=== PATIENT | female | born 1975 | race African-American/Black ===

== ENCOUNTER 2017-10-12 11:06 | Emergency (ER) | payer MEDICAID ==
[~2017-10-12] VITALS: Ht 167.6 cm; Wt 90.3 kg
[2017-10-12 11:26] VITALS: BP 142/92
--- NOTE | 2017-10-12 11:51 | NUR ---
42F BIB SELF WITH C/O ABNORMAL HEAVY VAGINAL BLEEDING X 15 DAYS, WORSENING THE PAST TWO DAYS. PT ALSO REPORTS OF INTERMITTENT DIZZINESS AND FATIGUE X 2 DAYS. PT STATES HAS HX OF ABNORMAL HEAVY VAGINAL BLEEDING DURING PERIOD. PT ALSO REPORTS OF 7/10 THROAT PAIN AND GENERALIZED PAIN. PT REPORTS OF VAGINAL BLEEDING 1 PAD PER PERIOD. PT DENIES ANY ABD PAIN OR N/V/D. PT IS AOX4 WITH STEADY GAIT. RR ARE EVEN AND UNLABORED. SKIN WARM/PINK/DRY. AWAITING FOR ER MD CORMIER. NO ACUTE DISTRESS AT THIS TIME. VSS. ALL NEEDS MET AT THIS TIME. WILL CONTINUE TO MONITOR.
[2017-10-12] MEDS ORDERED: ONDANSETRON 4 MG/2 ML VIAL IVP ONE (12:35)
[2017-10-12] MEDS ORDERED: KETOROLAC 30 MG/ML VIAL IVP ONE (12:35)
[2017-10-12] MEDS ORDERED: DEXAMETHASONE 10 MG/ML VIAL IVP ONE (12:35)
[2017-10-12] MEDS ORDERED: NACL 0.9% 1,000 ML IV SCH (12:35)
[2017-10-12] MEDS ORDERED: cefTRIAXone 1,000 MG VIAL ONE (13:00)
--- NOTE | 2017-10-12 13:04 | NUR ---
PT RESTING WITH EYES CLOSED LYING SUPINE. NO COMPLAITNS. RR ARE EVEN AND UNLABORED. WILL CONTINUE TO MONITOR.
[2017-10-12 13:25] LABS: ANION GAP 11.4 (8-16); CARBON DIOXIDE 25.4 mmol/L (21-32); CREATININE 0.7 mg/dL (0.6-1.3); POTASSIUM 3.8 mmol/L (3.5-5.1)
[2017-10-12 13:28] LABS: BASOPHILS # (AUTO) 0.1 K/uL (0.00-0.22); BASOPHILS % (AUTO) 0.9 % (0.0-2.0); EOSINOPHILS # (AUTO) 0.1 K/uL (0-0.4); HEMOGLOBIN 9.1 g/dL (12.0-16.0); LYMPHOCYTES # (AUTO) 1.6 K/uL (2.5-16.5); LYMPHOCYTES % (AUTO) 21.4 % (20.5-51.1); MEAN CORPUSCULAR HEMOGLOBIN 19 pg (27-31); MEAN CORPUSCULAR HGB CONC 30 g/dL (33-37); MEAN CORPUSCULAR VOLUME 63 fL (80-94); MONOCYTES # (AUTO) 0.6 K/uL (0.8-1.0); MONOCYTES % (AUTO) 8.4 % (1.7-9.3); NEUTROPHILS % (AUTO) 68.3 % (42.2-75.2); PLATELET COUNT (AUTO) 323 K/uL (140-450); RED BLOOD CELL COUNT(AUTO) 4.74 MIL/uL (4.20-5.40); RED CELL DISTRIBUTION WIDTH 18.1 % (11.6-13.7); WHITE BLOOD COUNT (AUTO) 7.4 K/uL (4.8-10.8)
[2017-10-12 13:32] LABS: ALBUMIN 3.2 g/dL (3.4-5.0); TOTAL BILIRUBIN 0.4 mg/dL (0.0-1.0)
--- NOTE | 2017-10-12 14:02 | NUR ---
pt with no complaints. pt aox4. rr are even and unlabored. will continue to monitor.
[2017-10-12 14:54] LABS: BILIRUBIN,URINE NEGATIVE (NEGATIVE); BLOOD, URINE 3+ (NEGATIVE); COLOR,URINE YELLOW (YELLOW); LEUKOCYTE ESTERASE ,URINE NEGATIVE (NEGATIVE); NITRITE, URINE NEGATIVE (NEGATIVE); PH,URINE 5.5 (5.0-9.0); UGLUCOSE NEGATIVE (NEGATIVE)
[2017-10-12 15:11] LABS: APPEARANCE,URINE CLEAR (CLEAR)
[2017-10-12 15:15] LABS: RBC,URINE 50-80 /HPF (0-5); WBC,URINE NONE SEEN /HPF (0-5)
[2017-10-12 15:55] VITALS: BP 140/89
--- NOTE | 2017-10-12 15:55 | NUR ---
Patient discharged with v/s stable. Written and verbal after care instructions given and explained. Patient alert, oriented and verbalized understanding of instructions. Ambulatory with steady gait. All questions addressed prior to discharge. ID band removed. Patient advised to follow up with PMD. Rx of Promethazine, Fiorcet, and Tamiflu given. Patient educated on indication of medication including possible reaction and side effects. Opportunity to ask questions provided and answered.
== END 2017-10-12 15:55 | disposition home or self-care (01) ==
LOC: MED 11:06
DX: N92.0 Excessive and frequent menstruation with regular cycle (principal); J11.1 Influenza due to unidentified influenza virus with other respiratory manifestations; F41.9 Anxiety disorder, unspecified; N93.8 Other specified abnormal uterine and vaginal bleeding
CPT/HCPCS: 36415; 76856; 80053; 81001; 84703; 85025; 87804; 96365; 96375; 99285; J0696; J1100; J1885; J2405; J7030; Q0092